=== PATIENT | male | born 1990 | race African-American/Black ===

== ENCOUNTER 2017-06-26 15:39 | Emergency (ER) | payer SELFPAY ==
[~2017-06-26] VITALS: Ht 185.4 cm; Wt 99.8 kg
[2017-06-26 16:25] VITALS: BP 127/88
[2017-06-26 16:49] LABS: BASOPHILS % (AUTO) 1.3 % (0.0-2.0); EOSINOPHILS % (AUTO) 0.2 % (0.0-3.0); MEAN CORPUSCULAR HEMOGLOBIN 24.7 PG (27.0-31.0); MEAN CORPUSCULAR HGB CONC 32.6 G/DL (32.0-36.0); MEAN CORPUSCULAR VOLUME 76 FL (80-99); MEAN PLATELET VOLUME 8.8 FL (6.5-10.1); MONOCYTES % (AUTO) 10.5 % (1.0-10.0); PLATELET COUNT 252 K/UL (150-450); RED BLOOD COUNT 6.49 M/UL (4.70-6.10); RED CELL DISTRIBUTION WIDTH 12.7 % (11.6-14.8); WHITE BLOOD COUNT 7.5 K/UL (4.8-10.8)
[2017-06-26 16:57] LABS: ACETAMINOPHEN < 10 ug/mL (10-30); ALANINE AMINOTRANSFERASE 20 U/L (3-41); ALBUMIN/GLOBULIN RATIO 1.4 (1.0-2.7); ALCOHOL < 10 mg/dL; ANION GAP 18 (5-15); ASPARTATE AMINO TRANSFERASE 23 U/L (5-40); CALCIUM 10.5 mg/dL (8.6-10.2); CARBON DIOXIDE 21 mEQ/L (20-30); CHLORIDE 96 mEQ/L (98-107); CREATININE 1.8 mg/dL (0.7-1.2); GLOMERULAR FILTRATION RATE 46.6 mL/min (>60); HEMOLYSIS 4; POTASSIUM 3.4 mEQ/L (3.4-4.9); SODIUM 135 mEQ/L (135-145); TOTAL PROTEIN 8.9 g/dL (6.6-8.7)
[2017-06-26] MEDS ORDERED: Azithromycin 250mg tab ORAL ONE (17:45)
[2017-06-26] MEDS ORDERED: Lidocaine 1% MPF 10mg/ml 5ml IM ONE (17:45)
[2017-06-26] MEDS ORDERED: Bicillin LA 2,400,000 units IM ONE (17:45)
[2017-06-26 18:22] VITALS: BP 144/87
[2017-06-26 18:48] VITALS: BP 157/96
[2017-06-26 18:50] VITALS: BP 144/87
--- NOTE | 2017-06-26 21:10 | Emergency Room Report ---
History of Present Illness General Chief Complaint: General Complaint Source: EMS Present Illness HPI The patient is a 26-year-old male presenting for multiple complaints including weakness, ingesting unknown drug, and possible STD. He states that he's been feeling weak for the past 2 days for no known reason. He states that he has not been eating or drinking. He denies any pain. He also states that he took an unknown pill today and is unsure why. The patient also states that he has been having a discharge from the penis described as green/yellow. He also admits to a history of syphilis but is unsure if he was treated. He denies other symptoms including nausea, vomiting, fever, chills, shortness of breath, diarrhea, constipation, weight loss Allergies: Coded Allergies: No Known Allergies (Unverified , 06/26/17) Patient History Past Medical History: see triage record Pertinent Family History: none Reviewed Nursing Documentation: PMH: Agreed, PSxH: Agreed Nursing Documentation-PMH Past Medical History: No History, Except For Hx Cardiac Problems: No - stds Review of Systems All Other Systems: negative except mentioned in HPI Physical Exam Vital Signs Date Time Temp Pulse Resp B/P (MAP) Pulse Ox O2 Delivery O2 Flow Rate FiO2 06/26/17 15:31 97.9 120 16 112/70 98 Room Air Sp02 EP Interpretation: reviewed, normal General Appearance: no apparent distress, alert, GCS 15, non-toxic Head: normocephalic, atraumatic Eyes: bilateral eye normal inspection, bilateral eye PERRL Respiratory: chest non-tender, lungs clear, normal breath sounds, speaking full sentences Cardiovascular #1: regular rate, rhythm, no edema Gastrointestinal: normal bowel sounds, non tender, soft, non-distended, no guarding, no rebound Musculoskeletal: back normal, gait/station normal, normal range of motion, non- tender Neurologic: alert, oriented x3, responsive, motor strength/tone normal, sensory intact, speech normal Psychiatric: judgement/insight normal, memory normal, mood/affect normal, no suicidal/homicidal ideation Skin: normal color, no rash, warm/dry, well hydrated Lymphatic: no adenopathy Medical Decision Making PA Attestation Dr. Meadows is my supervising physician. Patient management was discussed with my supervising physician Diagnostic Impression: Primary Impression: Drug abuse Additional Impressions: Possible exposure to STD Dehydration ER Course The patient is a 26-year-old male presenting for multiple complaints including weakness, ingesting unknown drug, and possible STD Differential diagnoses considered but not limited to: Gonorrhea, Chlamydia, herpes, syphilis, dehydration, depression, drug abuse, among others PE unremarkable. CBC unremarkable. No leukocytosis. No anemia CMP reveals elevated creatinine. Otherwise unremarkable Urine drug screen positive for opiates, amphetamines, and marijuana The patient was given 2 L of fluid and ate a sandwich. He is feeling better. He was treated for gonorrhea, Chlamydia, and syphilis He will be discharged with the ER precautions Laboratory Tests Test 06/26/17 16:17 White Blood Count 7.5 K/UL (4.8-10.8) Red Blood Count 6.49 M/UL (4.70-6.10) H Hemoglobin 16.0 G/DL (14.2-18.0) Hematocrit 49.2 % (42.0-52.0) Mean Corpuscular Volume 76 FL (80-99) L Mean Corpuscular Hemoglobin 24.7 PG (27.0-31.0) L Mean Corpuscular Hemoglobin Concent 32.6 G/DL (32.0-36.0) Red Cell Distribution Width 12.7 % (11.6-14.8) Platelet Count 252 K/UL (150-450) Mean Platelet Volume 8.8 FL (6.5-10.1) Neutrophils (%) (Auto) 65.0 % (45.0-75.0) Lymphocytes (%) (Auto) 23.0 % (20.0-45.0) Monocytes (%) (Auto) 10.5 % (1.0-10.0) H Eosinophils (%) (Auto) 0.2 % (0.0-3.0) Basophils (%) (Auto) 1.3 % (0.0-2.0) Sodium Level 135 mEQ/L (135-145) Potassium Level 3.4 mEQ/L (3.4-4.9) Chloride Level 96 mEQ/L (98-107) L Carbon Dioxide Level 21 mEQ/L (20-30) Anion Gap 18 (5-15) H Blood Urea Nitrogen 16 mg/dL (7-23) Creatinine 1.8 mg/dL (0.7-1.2) H Estimate Glomerular Filtration Rate 46.6 mL/min (>60) Glucose Level 119 mg/dL (74-106) H Calcium Level 10.5 mg/dL (8.6-10.2) H Total Bilirubin 0.9 mg/dL (0.0-1.2) Aspartate Amino Transferase (AST) 23 U/L (5-40) Alanine Aminotransferase (ALT) 20 U/L (3-41) Alkaline Phosphatase 107 U/L (40-129) Total Protein 8.9 g/dL (6.6-8.7) H Albumin 5.2 g/dL (3.5-5.2) Globulin 3.7 g/dL Albumin/Globulin Ratio 1.4 (1.0-2.7) Salicylates Level < 1 mg/dL (10-30) L Urine Opiates Screen Positive (NEGATIVE) H Acetaminophen Level < 10 ug/mL (10-30) L Urine Barbiturates Screen Negative (NEGATIVE) Phencyclidine (PCP) Screen Negative (NEGATIVE) Urine Amphetamines Screen Positive (NEGATIVE) H Urine Benzodiazepines Screen Negative (NEGATIVE) Urine Cocaine Screen Negative (NEGATIVE) Urine Marijuana (THC) Screen Positive (NEGATIVE) H Serum Alcohol < 10 mg/dL Lab Results Impression CBC unremarkable. No leukocytosis. No anemia CMP reveals elevated creatinine. Otherwise unremarkable And drug screen positive for opiates, amphetamines, and marijuana Last Vital Signs Date Time Temp Pulse Resp B/P (MAP) Pulse Ox O2 Delivery O2 Flow Rate FiO2 06/26/17 18:50 97.9 79 19 144/87 100 Room Air Status: improved Disposition: HOME, SELF-CARE Condition: Improved Patient Instructions: Sexually Transmitted Disease, Finding Treatment for Addiction Additional Instructions: I discussed my findings with the patient. All questions and concerns have been answered. Treatment and medication compliance have been addressed. I advised the patient that they need to follow up with PMD in 3-5 days. Return to ED if symptoms worsen, new symptoms arise, or if needed for any reason. Patient verbalized understanding of discharge instructions. REYNALDO DALTON Jun 26, 2017 21:10
== END 2017-06-26 18:50 | disposition home or self-care (01) ==
LOC: EDBD 15:39 → EMR 17:28
DX: F19.10 Other psychoactive substance abuse, uncomplicated (principal); E86.0 Dehydration; R53.1 Weakness
CPT/HCPCS: 36415; 80053; 80300; 85025; 96372; 96374; 96375; 99284; G0480; J0696; 80329